=== PATIENT | female | born 2005 | race Two or more races ===

== ENCOUNTER 2025-06-11 12:14 | Outpatient (CLI) | payer BC, SELFPAY | END 2025-06-11 12:15 | disposition home or self-care (01) | LOC: AMB 06-14 13:17 | PROVIDERS: Visit Provider Emergency Medicine | DX: S29.9XXA Unspecified injury of thorax, initial encounter (principal); M62.81 Muscle weakness (generalized); W50.0XXA Accidental hit or strike by another person, initial encounter; Y93.66 Activity, soccer; Y92.328 Other athletic field as the place of occurrence of the external cause | CPT/HCPCS: A0425; A0427 ==

== ENCOUNTER 2025-06-11 12:45 | Emergency (ER) | payer BC, SELFPAY ==
--- OUTSIDE RECORDS SUMMARY | 2025-05-30 09:00 | XMS_ITS | Encounter Summary ---
Author Organization [facility] Address [address] [place] [address] Care Team Providers Care Lpn Name Role Phone Alphonso Guevara MD Primary Care Provider [phone] Reason for Visit * Reason Comments Imm/Inj Pt states that she's having some urinary incontinence - recommended to reach out to her PCP. No other concerns today. Encounter Details Date Type Department Care Team (Late st Contact Info) Description 05/30/2025 9:00 AM CDT Nurse Only [facility] [place] [address] [place] [address] Need for HPV vaccine (Primary Dx) Social History Tobacco Use Types Packs/Day Years Used Date Smoking Tobacco: Never Passive Smoke Exposure: Current Smokeless Tobacco: Never Tobacco Cessation:Counseling Given: Not Answered PHQ-2 Answer Date Recorded Initial depression screening score: 0 05/30/2025 Inadequate Housing Answer Date Recorded Social Determinants: Housing (Overall Score Help er) 0 10/20/2021 Interpersonal Safety Answer Date Record ed How often does anyone, inclu ding family and friends, physically hurt you? Never 08/20/2024 How often does anyone, inclu ding family and friends, insult or talk down to you? Never 08/20/2024 How often does anyone, inclu ding family and friends, threaten you with harm? Never 08/20/2024 How often does anyone, jesus manueltao ding family and friends, scream or curse at you? Never 08/20/2024 Sexually Active Control Partners Comments Yes Injection Comments No Sex and Gender Information Value Date Recorded Sex Assigned at Not on file Legal Sex Female 11:31 AM CDT Gender Identity Not on file Sexual Orientation Not on file documented as of this encounter Last Filed Vital Signs Vital Sign Reading Time Taken Comments Blood Pressure 114/80 05/30/2025 9:02 AM CDT Pulse - - Temperature - - Respiratory Rate - - Oxygen Saturation - - Inhaled Oxygen Concentration - - Weight 68 kg (150 lb) 05/30/2025 9:02 AM CDT Height 170.2 cm (5' 7) 05/30/2025 9:02 AM CDT Body Mass Index 23.49 05/30/2025 9:02 AM CDT documented in this encounter Progress Notes * Karma Ch CMA - 05/30/2025 9:35 AM CDT Injection/Vaccine Supervising Provider: Heaven Conteh Reviewed allergies and possible side effects prior to injection. The patient was given Gardasil HPVand was held following the injection for 10 minutes. No signs or symptoms of allergic reaction we observed. Patient tolerated procedure well. Educated patient to call office with any questions or concerns. documented in this encounter Plan of Treatment Upcoming Encounters Date Type Department Care Team (Late st Contact Info) Description 06/16/2025 8:30 AM CDT Nurse Only [facility] [place] [address] [place] [phone] 09/12/2025 11:15 AM PAPER HANDLER Office Visit [facility], [place] [address] [phone] [place] [address] [place] [address] documented as of this encounter Visit Diagnoses Diagnosis Need for HPV vaccine- Primary Need for prophylactic vaccination and inoculation against other viral diseases documented in this encounter Historical Medications * This list may reflect changes made after this encounter. atomoxetine (STRATTERA) 40 MG capsule Take 40 mg by mouth daily. 05/10/2025 added in this encounter Orders Immunization/Injection Count Last Ordered Date First Ordered Date HPV 9 (GARDASIL 9) 1 05/30/2025 documented in this encounter Care Teams Lpn Relationship Specialty Start [place] [address] [place] [id number] PCP - General Family Practice 03/24/24 documented as of this encounter
--- OUTSIDE RECORDS SUMMARY | 2025-05-30 10:30 | XMS_ITS | Encounter Summary ---
Author Organization [facility] Address [address] [place] [address] Care Team Providers Care Mathematics Teacher Name Role Phone Alphonso Guevara MD Primary Care Provider [phone] Reason for Visit * Reason Comments Physical Encounter Details Date Type Department Care Team (Latest Contact Info) Description 05/30/2025 10:30 AM CDT Office Visit [facility] [phone] [address] Corrie Wang PA-C [address] [place] [address] Annual physical exam (Primary Dx); Routine sports physical exam; Screening for sickle-cell disease or trait; Urinary urgency; Need for vaccination; Family history of cardiovascular disease Social History Tobacco Use Types Packs/Day Years Used Date Smoking Tobacco: Never Passive Smoke Exposure: Current Smokeless Tobacco: Never Tobacco Cessation:Counseling Given: Not Answered PHQ-2 Answer Date Recorded Initial depression screening score: 0 05/30/2025 Inadequate Housing Answer Date Recorded Social Determinants: Housing (Overall Score Help er) 0 10/20/2021 Interpersonal Safety Answer Date Record ed How often does anyone, jesus manuelu ding family and friends, physically hurt you? Never 08/20/2024 How often does anyone, inclu ding family and friends, insult or talk down to you? Never 08/20/2024 How often does anyone, inclu ding family and friends, threaten you with harm? Never 08/20/2024 How often does anyone, inclu ding family and friends, scream or curse [...] Sign Reading Time Taken Comments Blood Pressure 122/80 05/30/2025 10:33 AM CDT Pulse 75 05/30/2025 10:33 AM CDT Temperature 36.9 C (98.4 F) 05/30/2025 10:33 AM CDT Respiratory Rate 18 05/30/2025 10:33 AM CDT Oxygen Saturation 96% 05/30/2025 10:33 AM CDT Inhaled Oxygen Concentration - - Weight 71.2 kg (157 lb) 05/30/2025 10:33 AM CDT Height 170.2 cm (5' 7) 05/30/2025 10:33 AM CDT Body Mass Index 24.59 05/30/2025 10:33 AM CDT documented in this encounter Progress Notes * Corrie Wang PA-C - 05/30/2025 10:44 AM CDT Chief complaint: Chief Complaint Patient presents with Physical Vitals: Visit Vitals BP 122/80 Pulse 75 Temp 98.4 ??F (36.9 ??C) Resp 18 Ht 5' 7 (1.702 m) Wt 71.2 kg (157 lb) LMP 04/12/2025 (Approximate) SpO2 96% BMI 24.59 kg/m?? HISTORY OF PRESENT ILLNESS Elizabeth Raymond is a pleasant 19 year old female presents to the clinic for annual physical and sports physical. Sophomore at [employer]. Her first game is 05/31/25. She transferred from [facility]. 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 Patient's last menstrual period was 04/12/2025 (approximate). Started Depo in April 2025. Sexually active with male partner. Established with psych. Currently on Strattera for ADHD and mirtazapine- appetite, insomnia, and anxiety. -She is tolerating this regimen well. Denies MEREDITH, palpitations. BP is normotensive. 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 No alcohol. No recreational drug use. Sports preparticipation HPI Diagnosis of asthma? No Wakes during night coughing? No defects? No Developmental delay? No Blood disorders? Hemophilia, sickle cell, other? No Diabetes? No Head injury/concussion/passed out? No head injury or concussion. She had syncope about 3 years ago,no issues since. Seizures? No Heart problem/shortness of breath? No Heart murmur/high blood pressure? No Dizziness or chest pain with exercise?No Eyes/vision problems? No Ears/hearing problems?No Bone/joint problems/injury/scoliosis? No Loss of function of one of paired organs? (eye/ear/kidney/testicle) No Hospitalizations? No Surgery? No Serious injury or illness? No TB skin test positive? No TB disease? No Tobacco use? No Alcohol/drug use? No Family history of sudden before age 50? No Had you ever taken anabolic steroids are used any other performance supplement? No Do you wear a seatbelt, use a helmet, and use condoms? Yes Other significant problems: There are no active problems to display for this patient. PAST MEDICAL, FAMILY AND SOCIAL HISTORY Medications: Current Outpatient Medications Medication Sig Dispense Refill atomoxetine (STRATTERA) 40 MG capsule Take 40 mg by mouth daily. mirtazapine (REMERON) 15 MG tablet Take 15 mg by mouth at bedtime. atomoxetine (STRATTERA) 80 MG capsule Take 80 mg by mouth daily. (Patient not taking: Reported on 05/30/2025) No current facility-administered medications for this visit. Allergies: Allergies[1] Past Medical History/Surgeries: History - past medical[2] History - past surgical[3] Family History: History - family [4] Social History: Social History Tobacco Use Smoking status: Never Passive exposure: Current Smokeless tobacco: Never Substance Use Topics Alcohol use: Not on file REVIEW OF SYSTEMS Review of Systems Constitutional: Negative for fever. Respiratory: Negative for shortness of breath. Cardiovascular: Negative for chest pain. Neurological: Negative for dizziness and headaches. PHYSICAL EXAM Physical Exam Vitals and nursing note reviewed. Constitutional: General: She is not in acute distress. Appearance: Normal appearance. She is not ill-appearing, toxic-appearing or diaphoretic. HENT: Head: Normocephalic and atraumatic. Right Ear: Tympanic membrane, ear canal and external ear normal. Left Ear: Tympanic membrane, ear canal and external ear normal. Mouth/Throat: Mouth: Mucous membranes are moist. Pharynx: No oropharyngeal exudate or posterior oropharyngeal erythema. Neck: Neck supple. Eyes: Conjunctiva/sclera: Conjunctivae normal. Pupils: Pupils are equal, round, and reactive to light. Cardiovascular: Rate and Rhythm: Normal rate and regular rhythm. Heart sounds: Normal heart sounds. Pulmonary: Effort: Pulmonary effort is normal. No respiratory distress. Breath sounds: Normal breath sounds. Abdominal: General: Abdomen is flat. Bowel sounds are normal. There is no distension. Palpations: Abdomen is soft. There is no mass. Tenderness: There is no abdominal tenderness. Musculoskeletal: Right lower leg: No edema. Left lower leg: No edema. Lymphadenopathy: Cervical: No cervical adenopathy. Skin: General: Skin is warm and dry. Findings: No rash. Neurological: Mental Status: She is alert and oriented to person, place, and time. Psychiatric: Mood and Affect: Mood normal. Behavior: Behavior normal. Judgment: Judgment normal. EKG Normal sinus rhythm Normal EKG ASSESSMENT/PLAN Elizabeth was seen today for physical. Diagnoses and all orders for this visit: Annual physical exam Routine sports physical exam - Electrocardiogram 12-Lead Screening for sickle-cell disease or trait - Sickling Screen With Reflex; Future Urinary urgency - POCT Urine Dip Auto Need for vaccination - MENINGOCOCCAL B (BEXSERO) Family history of cardiovascular disease - Electrocardiogram 12-Lead Ok for unlimited sports participation. Sickle cell screening results are pending. [1] ALLERGIES: No Known Allergies [2] Past Medical History: Diagnosis Date ADHD Chlamydia infection 03/21/2025 Tx with Doxy 100 BID x7 [3] No past surgical history on file. [4] Family History Problem Relation Name Age of Onset Heart disease Maternal Grandmother Heart disease Paternal Grandmother Heart disease Paternal Grandfather documented in this encounter Plan of Treatment Upcoming Encounters Date Type Department Care Team (Late st Contact Info) Description 06/16/2025 8:30 AM CDT Nurse Only [facility] [place] [address] [place] [address] 09/12/2025 11:15 AM LABORATORY CHEMIST Office Visit [facility], [place] [address] [place] [address] [place] [address] [place] [address] [place], [place] [id number] documented as of this encounter Procedures Procedure Name Priority Date/Time Associated Diagnosis Comments POCT URINE DIP AUTO Routine 05/30/2025 1 1:29 AM CDT Urinary urgency ELECTROCARDIOGRAM 12-LEAD Today 05/30/2025 11:25 AM CDT Routine sports physical exam Family history of cardiovascular disease documented in this encounter Results * Sickling Screen With Reflex (05/30/2025 11:46 AM CDT) Sickling Screen Negative Negative 05/30/2025 1:24 PM CDT [facility] Blood VENOUS BLOOD SPECIMEN / Unknown Venipuncture / Unknown 05/30/2025 11:46 AM CDT 05/30/2025 11:46 AM CDT Corrie Oden PA-C BKR LAB BLOOD ORDERABLES F inal Result [facility] [address] [place] [id number] * POCT Urine Dip Auto (05/30/2025 11:29 AM CDT) POCT Color Yellow [place], [place], [place], [place], Red, Straw, Yellow, Green, Blue, Colorless, Other POCT Appearance Clear Clear, Cloudy, Hazy, Turbid POCT Glucose Urine Negative Negative mg/dL POCT Bilirubin Negative Negative POCT Ketones Negative Negative mg/dL POCT Specific [place] 1.025 1.000, 1.005, 1.010, 1.015, 1.020, 1.025, 1.030, <= 1.005 POCT Occult Blood Negative Negative POCT pH 7.0 5.0, 5.5, 6.0, 6.5, 7.0, 7.5, 8.0, 8.5 POCT Protein Negative Negative mg/dL POCT Urobilinogen 0.2 0.2, 1.0 mg/dL Urine Nitrite Negative Negative WBC (Leukocyte) Esterase POC Negative Negative TEST LOT NUMBER [id number] TEST LOT EXPIRATION DATE Urine 05/30/2025 11:2 9 AM CDT Corrie Oden PA-C POINT OF CARE TEST ORDERAB LES Final Result * Electrocardiogram 12-Lead (05/30/2025 11:25 AM CDT) 05/30/2025 11:2 5 AM CDT Impressions Corrie Wang PA-C - 05/30/2025 12:17 PM CDT Normal sinus rhythm Normal EKG I agree with machine generated EKG interpretation. -Corrie Oden PA-C Narrative Corrie Wang PA-C - 05/30/2025 12:17 PM CDT NSR Corrie Oden PA-C ECG ORDERABLES Final Resu lt documented in this encounter Visit Diagnoses Diagnosis Annual physical exam- Primary Routine general medical examination at a health care facility Routine sports physical exam Other general medical examination for administrative purposes Screening for sickle-cell disease or trait Urinary urgency Urgency of urination Need for vaccination Need for prophylactic vaccination and inoculation against unspecified single disease Family history of cardiovascular disease Family history of other cardiovascular diseases documented in this encounter Orders Immunization/Injection Count Last Ordered Date First Ordered Date MENINGOCOCCAL B (BEXSERO) 1 05/30/2025 documented in this encounter Care Teams Mathematics Teacher Relationship Specialty Start [place] [address] [place] [address] PCP - General Family Practice 03/24/24 documented as of this encounter
--- OUTSIDE RECORDS SUMMARY | 2025-05-30 12:30 | XMS_ITS | Encounter Summary ---
Author Organization [facility] Address [address] [place] [address] Care Team Providers Care Shadowgraph Operator Name Role Phone Alphonso Guevara MD Primary Care Provider [phone] Encounter Details Date Type Department Care Team (Late st Contact Info) Description 05/30/2025 12:30 PM CDT Lab Services [facility] [address] [place], [place] [id number] Screening for sickle-cell disease or trait Social History Tobacco Use Types Packs/Day Years Used Date Smoking Tobacco: Never Passive Smoke Exposure: Current Smokeless Tobacco: Never PHQ-2 Answer Date Recorded Initial depression screening score: 0 05/30/2025 Inadequate Housing Answer Date Recorded Social Determinants: Housing (Overall Score Help er) 0 10/20/2021 Interpersonal Safety Answer Date Record ed How often does anyone, jesus manueltao jared family and friends, physically hurt you? Never 08/20/2024 How often does anyone, isaias coleman family and friends, insult or talk down to you? Never 08/20/2024 How often does anyone, isaias coleman family and friends, threaten you with harm? Never 08/20/2024 How often does anyone, jesus manueltao coleman family and friends, scream or curse at you? Never 08/20/2024 Sexually Active Control Partners Comments Yes Injection Comments No Sex and Gender Information Value Date Recorded Sex Assigned at Not on file Legal Sex Female 11:31 AM CDT Gender Identity Not on file Sexual Orientation Not on file documented as of this encounter Plan of Treatment Upcoming Encounters Date Type Department Care Team (Late st Contact Info) Description 06/16/2025 8:30 AM CDT Nurse Only [facility] [place] [address] [place] [address] 09/12/2025 11:15 AM AUDIO VISUAL COLLECTIONS COORDINATOR Office Visit [facility], [place] [address] [place] [address] [place] [phone] [place] [address] [place], [place] [phone] documented as of this encounter Procedures Procedure Name Priority Date/Time Associated Diagnosis Comments SICKLING SCREEN WITH REFLEX Routine 05/30/2025 11:46 AM CDT Screening for sickle-cell disease or trait documented in this encounter Results * Sickling Screen With Reflex (05/30/2025 11:46 AM CDT) Sickling Screen Negative Negative 05/30/2025 1:24 PM CDT [facility] Blood VENOUS BLOOD SPECIMEN / Unknown Venipuncture / Unknown 05/30/2025 11:46 AM CDT 05/30/2025 11:46 AM CDT us Corrie Oden PA-C BKR LAB BLOOD ORDERABLES F inal Result [facility] [address] [place] [address] documented in this encounter Visit Diagnoses Diagnosis Screening for sickle-cell disease or trait documented in this encounter Care Teams Shadowgraph Operator Relationship Specialty Start [place] [address] [place] [address] PCP - General Family Practice 03/24/24 documented as of this encounter
[2025-06-11] VITALS (27 sets, daily range): BP systolic 130; BP diastolic 97; PULSE 62–90; RESP 16; TEMP 37.1; O2SAT 92–100; BMI 24.6
--- NOTE | 2025-06-11 13:20 | ED_ITS ---
HPI - Back Pain/Injury General Time Seen by Provider: 13:20 Date Seen: 06/11/25 Chief Complaint: Back Injury/Pain Stated Complaint: Back pain Time Seen by Provider: 06/11/25 13:12 Source: patient, EMS and RN notes reviewed Mode of arrival: EMS Limitations: no limitations History of Present Illness HPI Narrative: This 19-year-old female is brought in by EMS from a soccer game with a back injury. She is from [place], is here playing soccer. She was going for a ball and got any in the back area, she states it is more in the upper lumbar to lower thoracic area. There was enough force that this caused her to fall. She was later sitting there and was checked out by the life trainer, they thought her right leg was weak. When she started try to walk, felt some numbness in the left leg. Numbness is gone now. They called the ambulance and there has been no attempt to ambulate after that. She feels best sitting up. Notes no difficulty breathing, no pain with breathing, no chest pain with this, no abdominal pain. She did not lose consciousness, nothing else was injured when she fell forward. She states it is just her back that hurts. MD elicited complaint: back pain Related Data Allergies Allergy/AdvReac Type Severity Reaction Status Date / Time No Known Drug Allergies Allergy Verified 06/11/25 12:53 Review of Systems Status of ROS: Reports: 6 or more systems reviewed and unremarkable except as noted in History and below [facility] PFS Social History Smoking Status: Never smoker How often do you have a drink containing alcohol: never AUDIT-C Alcohol total score: 0 Non-prescribed substance use: denies use Exam Const: Vital Signs, click to edit/add: Vital Signs - 24 hr 06/11/25 12:54 06/11/25 13:00 06/11/25 13:00 Temperature 98.8 F Pulse Rate 84 79 Pulse Rate [Pulse Oximeter] 90 Respiratory Rate 16 Blood Pressure [Ri ght Upper Arm] 130/97 H Pulse Oximetry 94 95 96 Oxygen Delivery Me thod Room Air 06/11/25 13:15 06/11/25 13:30 06/11/25 13:45 Temperature Pulse Rate 76 79 82 Pulse Rate [Pulse Oximeter] Respiratory Rate Blood Pressure [Ri ght Upper Arm] Pulse Oximetry 99 100 97 Oxygen Delivery Me thod 06/11/25 14:00 06/11/25 14:15 06/11/25 14:30 Temperature Pulse Rate 81 72 78 Pulse Rate [Pulse Oximeter] Respiratory Rate Blood Pressure [Ri ght Upper Arm] Pulse Oximetry 97 99 98 Oxygen Delivery [place] th[place] 06/11/25 15:06 06/11/25 15:15 06/11/25 15:30 Temperature Pulse Rate 68 73 81 Pulse Rate [Pulse Oximeter] Respiratory Rate Blood Pressure [Ri ght Upper Arm] Pulse Oximetry 99 96 92 [facility] 06/[facility]/25 15:45 06/11/25 16:00 06/11/25 16:15 Temperature Pulse Rate 79 73 81 Pulse Rate [Pulse Oximeter] Respiratory Rate Blood Pressure [Ri ght Upper Arm] Pulse Oximetry 98 98 97 [facility] 06/11/25 16:30 06/11/25 16:45 06/11/25 17:00 Temperature Pulse Rate 67 76 77 Pulse Rate [Pulse Oximeter] Respiratory Rate Blood Pressure [Ri ght Upper Arm] Pulse Oximetry 97 98 97 [facility] 06/11/25 17:15 06/11/25 17:30 06/11/25 17:45 Temperature Pulse Rate 66 68 62 Pulse Rate [Pulse Oximeter] Respiratory Rate Blood Pressure [Ri ght Upper Arm] Pulse Oximetry 97 98 100 [facility] 06/11/25 18:00 06/11/25 18:15 06/11/25 18:30 Temperature Pulse Rate 83 74 70 Pulse Rate [Pulse Oximeter] Respiratory Rate Blood Pressure [Ri ght Upper Arm] Pulse Oximetry 96 96 98 [facility] 06/11/25 18:45 06/11/25 19:00 06/11/25 19:15 Temperature Pulse Rate 72 75 63 Pulse Rate [Pulse Oximeter] Respiratory Rate Blood Pressure [Ri ght Upper Arm] Pulse Oximetry 98 98 98 [facility] 06/11/25 19:30 Temperature Pulse Rate 76 Pulse Rate [Pulse Oximeter] Respiratory Rate Blood Pressure [Ri ght Upper Arm] Pulse Oximetry 96 Oxygen Delivery Me od This 19-year-old female is sitting straight up in bed, pillow under her knees. She is alert, interactive, no apparent distress. I am able to recline the bed back while she states sitting up. She is complaining of midline tenderness along her mid back along the lower thoracic and upper lumbar area. Visibly, cannot see any skin changes, no ecchymosis, no swelling. Lungs are clear, good air entry, no wheezing or crackles, no tachypnea, no accessory muscle use. CV regular rate and rhythm, no murmur, normal S1-S2, S3-S4. Neck full range of motion, no tenderness or pain. She has normal light touch sensation of her lower extremities. Her strength is 5/5 and symmetric around the ankles and toes, did not do much with her her hips or knees at this time as she states moving them causes pain in her back. She has a bruise over the right hip area which reportedly is older. No new injuries noted over the knees or lower extremities. Documenting provider has reviewed patient's vital signs: yes Course Course ED Course: This 19-year-old female is complaining of back pain, is more in the lower thoracic to upper lumbar where she states the injury was. This seems higher in the cord than what would just give her some leg symptoms. Did review with them that we can do CT imaging to rule out fracture. There still could be underlying cord pathology that we would not CN CT imaging and may require MR imaging. We have reviewed that we do not have MR imaging available at this time in the ER. She is having return of her pain, will order some more fentanyl as she did tolerate this with EMS. Her legs seem to be stable at this time but have not ambulated her. Reevaluation(s) Time of Reevaluation #1: 14:27 Reevaluation #1: Nursing staff reports patient's pain is returning, have ordered another 25 mcg fentanyl. Still awaiting CT imaging to be done. Time of Reevaluation #2: 15:32 Reevaluation #2: Patient is lying flat now. She has found this more comfortable than the extreme upright position she was in earlier. She notes a while ago she was moving her left leg and then got sharp pain in the left knee. Her knee was not injured but she felt sudden severe sharp pain. We have reviewed that her CT imaging of her thoracic and lumbar spine are negative for acute fracture. They do understand that this does not completely rule out spinal injuries, there can be cord injuries, ligamentous issues that we cannot see on CT imaging. She is feeling better at this time, no numbness tingling in her legs, no pain into her legs. We are going to see if she can ambulate at all. If she has increase in her back or any neurologic changes, we will stop. They understand that she may need MRI imaging to clear her back which I may not be able to do at all here. I will see if an oncoming nurse technician might be trained but current staff is unable to do this testing. Time of Reevaluation #3: 16:13 Reevaluation #3: Patient had difficulty getting up due to back pain and lying back down but when she was up she had no pain ambulating, back was not bothering her. Any position gives her significant back pain. She is noting no neurologic changes of her lower extremities. Did review with him that we have no capacity for MRI here tonight, none of the technicians coming on our trained, none that are here are trained. Mom really is worried about her back, is wanting MRI done. It does seem she is having pain out of proportion to examination. There certainly could be ligamentous injury or other traumatic injury not involving fracture of the spine. We will look to see if we can find ED to ED transfer where she may have an MRI done. Additional Reevaluation(s): 6:10 p.m.: Awaiting transfer for this patient, EMS has logistical issues in we need to wait until about 7:00 p.m.. Patient put on her call light, states she barely moved her back in had a severe pain in front of her right knee. We will give her more pain medicine, have her lie flat in minimize movement. Lying still she is feeling better. We just need to get her to [facility] where she can have MR imaging of her spine. Have reviewed with her that she did not injure this knee, did not go down on the knee. There is no palpable tenderness of the knee. Moving her back has cause pain in this knee now. Her mom wonders about a pinched nerve. I did discuss with them that I just think we need to proceed with the plan and get the MRI of her thoracolumbar spine to rule out any ligamentous or spinal canal issue. Consultations Consultation #1: Spoke with Dr. Knight from [facility]. She agrees to take this patient in transfer for MR imaging of her spine. Mom and patient are updated, will plan on sending via ambulance. They understand there may be a delay in transfer as there are other more critical patients had of them in transfer, hopefully we will not have significant volume of 911 calls delaying as well. They will let us know if she is having more pain. Time: 16:14 Vital Signs Vital signs: Initial Vital Signs Pulse Rate 84 06/11/25 12:54 Pulse Oximetry 94 06/11/25 12:54 Vital Signs Pulse Rate 84 06/11/25 12:54 Pulse Oximetry 94 06/11/25 12:54 Temperature 98.8 F 06/11/25 13:00 Pulse Rate 76 06/11/25 19:30 Respiratory Rate 16 06/11/25 13:00 Blood Pressure 130/97 H 06/11/25 13:00 Pulse Oximetry 96 06/11/25 19:30 Oxygen Delivery Method Room Air 06/11/25 13:00 Medications Administered Medications: Discontinued Medications Generic Name Dose Route Start Last Admin Trade Name Freq PRN Reason Stop Dose Admin Fentanyl 25 mcg 06/11/25 13:29 06/11/25 13:50 Fentanyl 100 Mcg/2 Ml Inj IVP 06/11/25 13:30 25 mcg ONCE ONE Administration Fentanyl 25 mcg 06/11/25 14:27 06/11/25 15:05 Fentanyl 100 Mcg/2 Ml Inj IVP 06/11/25 14:28 25 mcg ONCE ONE Administration Fentanyl 25 mcg 06/11/25 18:10 06/11/25 18:22 Fentanyl 100 Mcg/2 Ml Inj IVP 06/11/25 18:11 25 mcg ONCE ONE Administration MDM - Back Pain/Injury Imaging Data CT thoracic spine: Attestation: I have reviewed the pertinent imaging results. Radiologist's impression: Patient: [facility] Facility:?[facility] Patient ID:?[id number] Site Patient ID:?[id number]. Site :?2005 Study:?CT-Spine Thoracic W/O-06/11/2025 2:54:22 PM Ordering Physician:[place] Final Report: INDICATION: Mid back pain TECHNIQUE: Non-contrast axial CT of the thoracic spine with coronal and sagittal reconstructions. No comparisons. FINDINGS: The overall stature and alignment of the thoracic spine is within normal limits. No evidence of bony fragments narrowing the central canal or visualized neural foramina. IMPRESSION: 1. No convincing radiographic evidence of acute osseous injury. Please note that all CT scans at this facility use dose modulation, iterative reconstruction, and/or weight-based dosing when appropriate to reduce radiation dose to as low as reasonably achievable. Dictated by Manuel Burns MD @ 06/11/2025 2:58:11 PM (Electronic Signature) CT lumbar spine: Attestation: I have reviewed the pertinent imaging results. Radiologist's impression: Patient: DARON OCONNOR Facility:?[facility] Patient ID:?[id number] Site Patient ID:?[id number]. Site :?2005 Study:?CT-Spine Lumbar W/O-06/11/2025 2:54:36 PM Ordering Physician:[place] Final Report: INDICATION: Low back pain. TECHNIQUE: Non-contrast axial CT of the lumbar spine with coronal and sagittal reconstructions. No comparisons. FINDINGS: The overall stature and alignment of the lumbar spine is within normal limits. No evidence of bony fragments narrowing the central canal or visualized neural foramina. IMPRESSION: 1. No radiographic evidence of acute osseous injury Please note that all CT scans at this facility use dose modulation, iterative reconstruction, and/or weight-based dosing when appropriate to reduce radiation dose to as low as reasonably achievable. Dictated by Manuel Burns MD @ 06/11/2025 2:58:59 PM (Electronic Signature) Discharge Plan Discharge Clinical Impression: Back pain of thoracolumbar region Patient Disposition: [facility] Discharge Location: [facility]
--- NOTE | 2025-06-11 13:28 | CRLHL7_ITS ---
For Patients: As a result of the Century Cures Act, medical imaging exams and procedure reports are released immediately into your electronic medical record. You may view this report before your referring provider. If you have questions, please contact your health care provider. INDICATION: Low back pain. TECHNIQUE: Non-contrast axial CT of the lumbar spine with coronal and sagittal reconstructions. No comparisons. FINDINGS: The overall stature and alignment of the lumbar spine is within normal limits. No evidence of bony fragments narrowing the central canal or visualized neural foramina. IMPRESSION: 1. No radiographic evidence of acute osseous injury Please note that all CT scans at this facility use dose modulation, iterative reconstruction, and/or weight-based dosing when appropriate to reduce radiation dose to as low as reasonably achievable. Dictated by Manuel Burns MD @ 06/11/2025 2:58:59 PM (Electronically Signed)
--- NOTE | 2025-06-11 13:28 | CRLHL7_ITS ---
For Patients: As a result of the Century Cures Act, medical imaging exams and procedure reports are released immediately into your electronic medical record. You may view this report before your referring provider. If you have questions, please contact your health care provider. INDICATION: Mid back pain TECHNIQUE: Non-contrast axial CT of the thoracic spine with coronal and sagittal reconstructions. No comparisons. FINDINGS: The overall stature and alignment of the thoracic spine is within normal limits. No evidence of bony fragments narrowing the central canal or visualized neural foramina. IMPRESSION: 1. No convincing radiographic evidence of acute osseous injury. Please note that all CT scans at this facility use dose modulation, iterative reconstruction, and/or weight-based dosing when appropriate to reduce radiation dose to as low as reasonably achievable. Dictated by Manuel Burns MD @ 06/11/2025 2:58:11 PM (Electronically Signed)
--- OUTSIDE RECORDS SUMMARY | 2025-06-11 13:58 | XMS_ITS | Encounter Summary ---
Author Organization [facility] Address [address] [place] [address] Care Team Providers Care Importer Or Exporter Name Role Phone Alphonso Guevara MD Primary Care Provider [phone] Encounter Details Date Type Department Care Team (Late st Contact Info) Description 05/29/2025 E-Advice [facility], [facility] [phone] [facility] [address] [place] [address] [place] [address] [place] [address] Sports Paperwork Social History Tobacco Use Types Packs/Day Years [...] scream or curse at you? Never 08/20/2024 Comments No Sex and Gender Information Value Date Recorded Sex Assigned at Not on file Legal Sex Female 11:31 AM CDT Gender Identity Not on file Sexual Orientation Not on file documented as of this encounter Miscellaneous Notes * Telephone Encounter - Jessica Arango RN - 05/30/2025 9:22 AM CDT Patient scheduled for today for sports physical with ALEXANDRE FRY documented in this encounter Plan of Treatment Upcoming Encounters Date Type Department Care Team (Late st Contact Info) Description 06/16/2025 8:30 AM CDT Nurse Only [facility] [place] [address] [place] [phone] 09/12/2025 11:15 AM CONTAINER WASHER MACHINE Office Visit [facility], [facility] [phone] [facility] [address] [place] [phone] [place] [address] [place] [address] documented as of this encounter Visit Diagnoses Not on filedocumented in this encounter Care Teams Importer Or Exporter Relationship Specialty Start [place] [address] [place] [address] PCP - General Family Practice 03/24/24 documented as of this encounter
--- OUTSIDE RECORDS SUMMARY | 2025-06-11 13:58 | XMS_ITS | Encounter Summary ---
Author Organization [facility] Address [address] [place] [address] Care Team Providers Care Deliver Driver Name Role Phone Alphonso Guevara MD Primary Care Provider [phone] Encounter Details Date Type Department Care Team (Late st Contact Info) Description 05/30/2025 Results Follow-Up [facility], [facility] [phone] [facility] [address] [place] [address] Corrie Wang PA-C [address] [place] [address] Social History Tobacco Use Types Packs/Day Years [...] Encounter - Jessica Arango RN - 05/30/2025 4:19 PM CDT ----- Message from Helen Feliciano RN sent at 05/30/2025 1:29 PM CDT ----- ----- Message ----- From: Corrie Wang PA-C Sent: 05/30/2025 1:26 PM CDT To: [facility] Nurse Msg Pool Sickling screen is negative ----- Message ----- From: Lab, Background User Sent: 05/30/2025 1:24 PM CDT To: Fred Armendariz Result Pool documented in this encounter Plan of Treatment Upcoming Encounters Date Type Department Care Team (Late st Contact Info) Description 06/16/2025 8:30 AM CDT Nurse Only [facility] [place] [address] [place] [address] [place] [phone] 09/12/2025 11:15 AM NAIL STICKER Office Visit [facility], [facility] [phone] [phone] [place] [address] [place] [address] Pending Results Name Type Priority Associated Diagnoses Date /Time SICKLE CELL SCREEN Lab Routine 2024 4:21 PM CDT documented as of this encounter Visit Diagnoses Not on filedocumented in this encounter Care Teams Deliver Driver Relationship Specialty Start [place] [address] [place] [address] PCP - General Family Practice 03/24/24 documented as of this encounter
--- OUTSIDE RECORDS SUMMARY | 2025-06-11 13:58 | XMS_ITS | Clinical Summary ---
Author Organization [facility] Address [address] [place] [address] Care Team Providers Care Inspector And Unloader Name Role Phone Unavailable Primary Care Provider Unavailabl e Source Comments PLEASE NOTE, if this patient is a minor, it may be UNLAWFUL to discuss sensitive information that is contained in these records (such as FAMILY PLANNING, MENTAL HEALTH or SUBSTANCE ABUSE) with the minor patient's parent or other person without the patient's specific authorization.[facility] Medications No known medications Active Problems No known active problems Social History Tobacco Use Types Packs/Day Years Used Date Smoking Tobacco: Never Assessed Tobacco Cessation:Counseling Given: Not Answered Social Connections Answer Date Recorded Connectedness 0 06/25/2024 Financial Resource Strain Answer Date R ecorded Financial Resource Strain 0 2022 Stress Answer Date Recorded Stress 0 10/19/2022 Physical Activity Answer Date Recorded Physical Activity 0 10/19/2022 Food Insecurity Answer Date Recorded Food 0 07/07/2024 Transportation Needs Answer Date Record ed Transportation 0 10/19/2022 Housing Stability Answer Date Recorded Housing 0 10/19/2022 Safety and Environment Answer Date Jordan rded Safety 0 10/19/2022 Utilities Answer Date Recorded Utilities 0 10/19/2022 Employment Answer Date Recorded Stress 0 06/25/2024 Comments No Sex and Gender Information Value Date Recorded Sex Assigned at Not on file Legal Sex Female 5:44 PM PDT Gender Identity Female 12/24/2022 8:49 PM PDT Sexual Orientation Straight 01/12/2024 9: 03 AM PDT Last Filed Vital Signs Vital Sign Reading Time Taken Comments Blood Pressure 117/77 07/09/2023 1:15 PM CDT Pulse 81 07/09/2023 1:15 PM CDT Temperature - - Respiratory Rate - - Oxygen Saturation - - Inhaled Oxygen Concentration - - Weight - - Height - - Body Mass Index - - Plan of Treatment Health Maintenance Due Date Last Done Comments Anxiety Screening 2005 Dental FMX/Pano 2005 Dental Perio Charting 2005 Hepatitis C Screening 2005 STI Counseling 2005 Tobacco Screening 2005 Chlamydia Screening 2018 Gonorrhea Screening 2018 HIV Screening 2020 Imm-HPV (1 - 3-dose series) 2020 Relationship Safety Screening/Counseling 2020 Dental Examination 07/03/2023 12/29/2022 Dental BW 01/01/2024 12/29/2022 Dental Prophy 01/09/2024 07/09/2023, 12/29/2022 [id number] ( season) 2024 Alcohol and Drug Screen 10/12/2024 Depression Annual Screen 10/12/2024 Imm-Influenza (#1) 2025 08/11/2016, 1 , 06/24/2010 Hypertension Screening (#1) 07/08/2026 Imm-DTaP/Tdap/Td (7 - Td or Tdap) 08/11/2026 08/11/2016, 06/24/2010, 02/08/2007, Additional history exists Imm-Hepatitis B Completed 02/08/2007, 03/13, 2005 Imm-Hepatitis A Completed 05/10/2007, 10/27/2006 Imm-MMR Completed 06/24/2010, 10/27/2006 Imm-Varicella Completed 06/24/2010, 02/08/2007 Procedures Procedure Name Priority Date/Time Associated Diagnosis Comments PROPHYLAXIS - ADULT Routine 07/09/2023 1 :00 PM CDT Prophylactic measure BITEWINGS - FOUR RADIOGRAPHIC IMAGES Routine 12/29/2022 10:00 AM CDT Caries of enamel (incipient) PERIODIC ORAL EVALUATION ESTABLISHED PATIENT Routine 12/29/2022 10:00 AM CDT Caries of enamel (incipient) from Last 3 Months or Most Recently Relevant to Health Maintenance Insurance [employer] Member Subscriber Plan / Payer (Ef fective 2023-Present) Name:Elizabeth Raymond Relation to Subscriber:Self Name:Elizabeth Raymond Payer ID:[id number] Group ID:Not on file Type:Medicaid Address: [place] [id number]
--- OUTSIDE RECORDS SUMMARY | 2025-06-11 13:58 | XMS_ITS | Clinical Summary ---
Author Organization [facility] Address [address] [place] [address] Care Team Providers Care Magnetic Tape Typewriter Operator Name Role Phone Alphonso Guevara MD Primary Care Provider [phone] Allergies No known active allergies Medications mirtazapine (REMERON) 15 MG tablet Take 15 mg by mouth at bedtime. 03/06/2024 Active atomoxetine (STRATTERA) 80 MG capsule Take 80 mg by mouth daily. 01/31/2024 Active atomoxetine (STRATTERA) 40 MG capsule Take 40 mg by mouth daily. 05/10/2025 Active Active Problems No known active problems Encounters Date Type Department Care Team Description 05/30/2025 12:30 PM CDT Lab Services ACL Lab - [facility], [place] [address] [place] [address] Screening for sickle-cell disease or trait 05/30/2025 10:30 AM CDT Office Visit [facility], [place] [address] [place] [address] [place] [phone] Corrie Wang PA-C Annual physical exam (Primary Dx); Routine sports physical exam; Screening for sickle-cell disease or trait; Urinary urgency; Need for vaccination; Family history of cardiovascular disease 05/30/2025 9:00 AM CDT Nurse Only [facility] [place] [address] [place] [phone] Need for HPV vaccine (Primary Dx) 05/30/2025 Med Info Forms Outside Facility 05/30/2025 Results Follow-Up [facility], [place] [address] [phone] Corrie Wang PA-C 05/29/2025 E-Advice [facility], [place] [address] [facility] [address] [place] [phone] Alphonso Guevara MD Sports Paperwork 04/28/2025 Results Follow-Up [facility] [place] [address] [address] [place] [phone] Heaven Conteh PA-C 04/25/2025 12:30 PM CDT Office Visit [facility] [place] [address] [place] [phone] Heaven Conteh PA-C History of chlamydia (Primary Dx); Screen for STD (sexually transmitted disease) 03/21/2025 Results Follow-Up [facility] [place] [address] [address] [place] [phone] Heaven Conteh PA-C 03/20/2025 2:30 PM CDT Office Visit [facility] [place] [address] [address] [address] [place] [phone] Heaven Conteh PA-C Well woman exam with routine gynecological exam (Primary Dx); Screen for STD (sexually transmitted disease); Encounter for initial prescription of injectable contraceptive; Depo-Provera contraceptive status; Need for HPV vaccine from Last 3 Months Immunizations Immunization Administration Dates Next Due DTaP 06/24/2010, 7,07/02/2006,04/02 DTaP/Hep B/IPV 2005 HIB (HbOC) 2005 HIB Hep B 02/08/2007,04/02/2006 HPV 9-Valent 05/30/2025,03/20/2025 Hep A, ped/adol, 2 dose 05/10/2007,10/27/2006 IPV 06/24/2010,10/27/2006,04/02/2006 Influenza, live, trivalent, intranasal 1,06/24/2010 Influenza, split virus, quadrivalent 08/11/2016 MMR 06/24/2010,10/27/2006 Meningococcal B, OMV 05/30/2025 Meningococcal Conjugate MCV4 P (Menactra) 06/09/2018 Pneumococcal Conjugate 7 Valent 10/27/19 07,07/02/2006,04/02/2006,12/02 Tdap 08/11/2016 Varicella 06/24/2010,02/08/2007 Medical History Medical History Date Comments Adhd Chlamydia infection 03/21/2025 Tx with Doxy 100 BID x7 Family History Medical History Relation Comments Heart disease Maternal Grandmother Heart disease Paternal Grandfather Heart disease Paternal Grandmother Relation Status Comments Maternal Grandmother Paternal Grandfather Paternal Grandmother Social History Tobacco Use Types Packs/Day Years Used Date Smoking Tobacco: Never Passive Smoke Exposure: Current Smokeless Tobacco: Never Tobacco Cessation:Counseling Given: Not Answered PHQ-2 Answer Date Recorded Initial depression screening score: 0 05/30/2025 Inadequate Housing Answer Date Recorded Social Determinants: Housing (Overall Score Help er) 0 10/20/2021 Interpersonal Safety Answer Date Record ed How often does anyone, isaias coleman family and friends, physically hurt you? Never 08/20/2024 How often does anyone, isaias coleman family and friends, insult or talk down to you? Never 08/20/2024 How often does anyone, isaias coleman family and friends, threaten you with harm? Never 08/20/2024 How often does anyone, isaias coleman family and friends, scream or curse at you? Never 08/20/2024 Sexually Active Control Partners Comments Yes Injection Comments No Sex and Gender Information Value Date Recorded Sex Assigned at Not on file Legal Sex Female 11:31 AM CDT Gender Identity Not on file Sexual Orientation Not on file Obstetrics History Para Term AB IAB SAB Ectopic Molar Multiple Living Live Births 0 0 0 0 0 0 0 0 0 0 0 0 Growth Chart Information Age Height Weight [id number] th Percentile BMI Percentile Head Circum Head Circum Percentile Date 19 years 170.2 cm (5' 7) 71.2 kg (157 lb) 76.55%* 2024 19 years 67.4 kg (148 lb 7.7 oz) 2024 19 years 170.2 cm (5' 7) 65.9 kg (145 lb 2.8 oz) 62.28%* 2024 18 years 167.6 cm (5' 6) 68.9 kg (152 lb) 78.55%* 2023 17 years 170.2 cm (5' 7) 64.4 kg (142 lb) 61.82%* 2022 16 years 170.2 cm (5' 7) 62.1 kg (136 lb 12.8 oz) 61.70%* 2021 9 years 30.4 kg (67 lb) 2014 * [facility] (Girls, 2-20 Years) Last Filed Vital Signs Vital Sign Reading [...] Mass Index 24.59 05/30/2025 10:33 AM CDT Plan of Treatment Upcoming Encounters Date Type Department Care Team (Late st Contact Info) Description 06/16/2025 8:30 AM CDT Nurse Only [facility] [place] [address] [place] [phone] 09/12/2025 11:15 AM READING ASSISTANT Office Visit [facility], [place] [address] [place] [address] [place] [phone] [place] [address] [place] [address] Health Maintenance Due Date Last Done Comments COVID-19 Vaccine ( - season) 2024 Influenza Vaccine (#1) 2025 6, 07/14/2011, 06/24/2010 HPV Vaccine (3 - 3-dose series) 09/19/2025 05/30/2025, 03/20/2025 Meningococcal Serogroup B Vaccine (2 of 2 - Bexsero SCDM 2-dose series) 11/30/2025 05/30/2025 Chlamydia and Gonorrhea Screening (if sexually active) 04/25/2026 04/25/2025, 03/20/2025 Depression Screening 05/30/2026 05/30/2025 Well Child Visit (ages 3 - 21) 05/30/2026 05/30/2025, 03/20/2025, 03/24/2024, Additional history exists DTaP/Tdap/Td Vaccine (7 - Td or Tdap) 08/11/2026 08/11/2016, 06/24/2010, 02/08/2007, Additional history exists Pneumococcal Vaccine 0-49 Aged Out 2006, 07/02/2006, 04/02/2006, Additional history exists No longer eligible based on patient's age to complete this topic Hepatitis B Vaccine Completed 02/08/2007, 04/02/2006, 2005 Hepatitis A Vaccine Completed 05/10/2007, 7 Varicella Vaccine Completed 06/24/2010, 02/08/2007 Meningococcal Vaccine Aged Out 06/09/2018 No vic christina eligible based on patient's age to complete this topic Procedures Procedure Name Priority Date/Time Associated Diagnosis Comments SICKLING SCREEN WITH REFLEX Routine 05/30/2025 11:46 AM CDT Screening for sickle-cell disease or trait POCT URINE DIP AUTO Routine 05/30/2025 1 1:29 AM CDT Urinary urgency ELECTROCARDIOGRAM 12-LEAD Today 05/30/2025 11:25 AM CDT Routine sports physical exam Family history of cardiovascular disease CHLAMYDIA/GONORRHEA BY NUCLEIC ACID AMPLIFICATION Routine 04/25/2025 12:58 PM CDT History of chlamydia Screen for STD (sexually transmitted disease) POCT URINE Routine 03/20/2025 3:09 PM CDT Encounter for initial prescription of injectable contraceptive Depo-Provera contraceptive status TRICHOMONAS VAGINALIS BY NUCLEIC ACID AMPLIFICATION Routine 03/20/2025 2:58 PM CDT Screen for STD (sexually transmitted disease) CHLAMYDIA/GONORRHEA BY NUCLEIC ACID AMPLIFICATION Routine 03/20/2025 2:58 PM CDT Screen for STD (sexually transmitted disease) CHLAMYDIA/GONORRHEA BY NUCLEIC ACID AMPLIFICATION Routine 03/20/2025 2:58 PM CDT Screen for STD (sexually transmitted disease) from Last 3 Months Results * Sickling Screen With Reflex (05/30/2025 11:46 AM CDT) Sickling Screen Negative Negative 05/30/2025 1:24 PM CDT [facility] Blood VENOUS BLOOD SPECIMEN / Unknown Venipuncture / Unknown 05/30/2025 11:46 AM CDT 05/30/2025 11:46 AM CDT us Corrie Oden PA-C BKR LAB BLOOD ORDERABLES F inal Result [facility] [address] [place] [address] * POCT Urine Dip Auto (05/30/2025 11:29 AM CDT) POCT Color Yellow [place], Brown, [place], [place], Red, Straw, Yellow, Green, Blue, Colorless, Other POCT Appearance Clear Clear, Cloudy, Hazy, Turbid POCT Glucose Urine Negative Negative mg/dL POCT Bilirubin Negative Negative POCT Ketones Negative Negative mg/dL POCT Specific [place] 1.025 1.000, 1.005, 1.010, 1.015, 1.020, 1.025, [...] Oden PA-C ECG ORDERABLES Final Resu lt * Chlamydia/Gonorrhea by Nucleic Acid Amplification (04/25/2025 12:58 PM CDT) Only the most recent of2 resultswithin the time period is included. Chlamydia trachomatis by Nucleic Acid Amplification Negative Negative [facility] 04/26/2025 10:12 AM CDT [facility] Neisseria gonorrhoeae by Nucleic Acid Amplification Negative Negative [facility] 04/26/2025 10:12 AM CDT [facility] Disclaimer The expected normal reference range is negative. Positive results are reported to the [facility] Department of Public Health. The Aptima Combo 2 Assay is not intended for the evaluation of suspected sexual abuse or for other medico-legal indications, nor has it been evaluated in adolescents less than 14 years of age. In these scenarios, and in clinical settings where the prevalence of infection is low, confirmatory testing on positive results is recommended. [facility] 04/26/2025 10:12 AM CDT [facility] Urine URINE SPECIMEN / Unknown 04/25/2025 12:58 PM CDT 04/25/2025 4:10 PM CDT Heaven EMERSONR LAB MOLEC DIAGN ORD Fin al Result Performing Organization Address [facility] Co de Phone Number [address] * POCT Urine (03/20/2025 3:09 PM CDT) URINE ,QUAL Negative Negative Internal Procedural Controls Acceptable Yes Yes TEST LOT NUMBER [id number] TEST LOT EXPIRATION DATE 831,301 Urine 03/20/2025 3:09 PM CDT Heaven Conteh PA-C POINT OF CARE TEST ORDERABL ES Final Result * Trichomonas vaginalis by Nucleic Acid Amplification (03/20/2025 2:58 PM CDT) Trichomonas vaginalis by Nucleic Acid Amplification Negative Negative [facility] 03/21/2025 11:21 AM CDT [facility] Swab VAGINAL AND CERVICAL CYTOLOGIC MATERIAL / Unknown 03/20/2025 2:58 PM CDT 03/20/2025 4:14 PM CDT Heaven EMERSONR LAB MOLEC DIAGN ORD Fin al Result Performing Organization Address [facility] Co de Phone Number [address] from Last 3 Months Insurance [employer] MED[place] Member Subscriber Plan / Payer (Ef fective 2025-Present) Name:Elizabeth Raymond Relation to Subscriber:Self Name:Elizabeth Raymond Payer ID:[id number] (NAIC) Group ID:Not on file Type:[id number] O Address: [address] [address] Care Teams Magnetic Tape Typewriter Operator Relationship Specialty Start [place] [address] [place] [phone] PCP - General Family Practice 03/24/24
--- OUTSIDE RECORDS SUMMARY | 2025-06-11 13:58 | XMS_ITS | Encounter Summary ---
Author Organization [facility] Address [address] [place] [address] Care Team Providers Care Services Account Manager Name Role Phone Alphonso Guevara MD Primary Care Provider [phone] Encounter Details Date Type Department Care Team (Late st Contact Info) Description 04/28/2025 Results Follow-Up [facility] [place] [address] [place] [address] Heaven Conteh PA-C [address] [address] [place] [address] Social History Tobacco Use Types Packs/Day Years Used Date Smoking Tobacco: Never Passive Smoke Exposure: Current Smokeless Tobacco: Never PHQ-2 Answer Date Recorded Initial depression screening score: 0 03/24/2024 Inadequate Housing Answer Date Recorded Social Determinants: [...] Description 06/16/2025 8:30 AM CDT Nurse Only [facility] [place] [address] [place] [phone] 09/12/2025 11:15 AM MARINE FIREMAN Office Visit [facility], [place] [address] [address] [facility] [address] [place] [phone] [place] [address] [address] [place], [place] [phone] documented as of this encounter Visit Diagnoses Not on filedocumented in this encounter Care Teams Services Account Manager Relationship Specialty Start [place] [address] [place] [phone] PCP - General Family Practice 03/24/24 documented as of this encounter
--- OUTSIDE RECORDS SUMMARY | 2025-06-11 13:58 | XMS_ITS | Encounter Summary ---
Author Organization [facility] Address [address] [place] [address] Care Team Providers Care Rewrite Editor Name Role Phone Alphonso Guevara MD Primary Care Provider [phone] Encounter Details Date Type Department Care Team (Late st Contact Info) Description 05/30/2025 Med Info Forms Outside Facility Social History Tobacco Use Types Packs/Day Years [...] Description 06/16/2025 8:30 AM CDT Nurse Only [facility] [place] [address] [address] [place] [phone] 09/12/2025 11:15 AM TURNING MACHINE OPERATOR Office Visit [facility] [address] [address] [facility] [address] [place] [phone] [place] [address] [address] [place] [phone] documented as of this encounter Visit Diagnoses Not on filedocumented in this encounter Care Teams Rewrite Editor Relationship Specialty Start [place] [address] [address] [place] [phone] PCP - General Family Practice 03/24/24 documented as of this encounter
--- OUTSIDE RECORDS SUMMARY | 2025-06-11 13:58 | XMS_ITS | Clinical Summary ---
Author Organization [facility] Address [address] [place] [address] Care Team Providers Care Bisque Cleaner Name Role Phone Ángel Pacheco MD Primary Care Provider Unavai lable Allergies No known active allergies Medications albuterol HFA 108 (90 Base) MCG/ACT inhaler Inhale 2 puffs 4 times daily as needed (wheezing). 1 Each 07/11/2021 Active Social History Tobacco Use Types Packs/Day Years Used Date Smoking Tobacco: Never Social Connections Answer Date Recorded How often do you feel lonely or isolated from those around you? Not on file 06/05/2024 Social Connections: Recent Result Not on file 06/05/2024 Personal Safety Answer Date Recorded Personal Safety: Recent Result Not on file 0 04/21/2024 Personal Safety Risk Score Not on file 04/21 Inadequate Housing Answer Date Recorded Do you have problems with any of the following? Not on file 05/29/2024 Inadequate Housing: Recent Result Not on file 05/29/2024 Homelessness Answer Date Recorded What is your living situation today? Not on file 05/29/2024 Homelessness: Resent Result Not on file 05/12 Internet Answer Date Recorded Which of the following devic es do you use or have access to regularly (at least once a month)? Not on file 05/29/2024 Which type of Internet conne ction do you have for personal use at home or in public places (not including work)? Not on file 05/29/2024 Comments Unknown Sex and Gender Information Value Date Recorded Sex Assigned at Not on file Legal Sex Female 7:53 PM FIRST BEATER Gender Identity Not on file Sexual Orientation Not on file Last Filed Vital Signs Vital Sign Reading Time Taken Comments Blood Pressure 121/83 07/11/2021 11:35 PM CDT Pulse 78 07/11/2021 11:35 PM CDT Temperature 36.8 C (98.2 F) 07/11/2021 11:35 PM CDT Respiratory Rate 16 07/11/2021 11:35 PM CDT Oxygen Saturation 95% 07/11/2021 11:35 PM CDT Inhaled Oxygen Concentration - - Weight 70.3 kg (155 lb) 07/11/2021 7:10 PM CDT Height 172.7 cm (5' 8) 07/11/2021 7:10 PM CDT Body Mass Index 23.57 07/11/2021 7:10 PM CDT Body Mass Index Percentile 80.34% 07/11/2021 7:1 0 PM CDT Growth Chart: CDC (Girls, 2- 20 Years) Plan of Treatment Health Maintenance Due Date Last Done Comments HIV Screening 2005 MMR Vaccines (1 of 1 - Standard series) 2006 Depression Screening 2017 Varicella Vaccines (1 of 2 - 13+ 2-dose series) 2018 HPV Immunization (1 - 3-dose series) 2020 Meningococcal B Vaccine (1 of 2 - Standard) 2021 COVID-19 Vaccine (1 - 2023- season) 2024 Hepatitis B Vaccines (1 of 3 - 19+ 3-dose series) 2024 Seasonal Flu Immunization (#1) 06/12/2025 08/11/2016 Routine Physical 03/24/2026 03/24/2024, 05/2019, 06/09/2018, Additional history exists DTaP/Tdap/Td Vaccines (2 - Td or Tdap) 08/11/2026 08/11/2016 Meningococcal Vaccine Aged Out 06/09/2018 No vic christina eligible based on patient's age to complete this topic HIB Vaccines Aged Out No longer eligi ble based on patient's age to complete this topic Hepatitis A Vaccines Aged Out No long er eligible based on patient's age to complete this topic RSV Immunization <20 Months Aged Out No longer eligible based on patient's age to complete this topic Rotavirus Vaccines Aged Out No longer eligible based on patient's age to complete this topic Insurance [facility] MEDICAID Care Teams Bisque Cleaner Relationship Specialty Start Date End Date Ángel Pacheco MD PCP - General Pediatrics 07/11/21
--- OUTSIDE RECORDS SUMMARY | 2025-06-11 13:59 | XMS_ITS | Encounter Summary ---
Author Organization [facility] Address [address] [place] [address] Care Team Providers Care Yard Brakeman Name Role Phone Ángel Pacheco MD Primary Care Provider [phone] Encounter Details Date Type Department Care Team (Late st Contact Info) Description 06/05/2008 Abstract [facility] [address] [place] [address] [facility] Historical, Provider [address] [place] [address] Social History Tobacco Use Types Packs/Day Years Used Date Smoking Tobacco: Never Assessed Comments Unknown Sex and Gender Information Value Date Recorded Sex Assigned at Not on file Legal Sex Female 3:58 AM CADDY PACKER Gender Identity Not on file Sexual Orientation Not on file documented as of this encounter Last Filed Vital Signs Vital Sign Reading Time Taken Comments Blood Pressure - - Pulse - - Temperature - - Respiratory Rate - - Oxygen Saturation - - Inhaled Oxygen Concentration - - Weight 14 kg (30 lb 13.8 oz) 06/05/2008 11:34 AM CDT Height - - Body Mass Index - - documented in this encounter Plan of Treatment Not on file documented as of this encounter Visit Diagnoses Not on filedocumented in this encounter Care Teams Yard Brakeman Relationship Specialty Start Date End Date Ángel Pacheco MD [address] [facility] [address] [phone] PCP - General 06/28/12 05/31/24 documented as of this encounter
--- OUTSIDE RECORDS SUMMARY | 2025-06-11 13:59 | XMS_ITS | Encounter Summary ---
Author Organization [facility] Address [address] [place] [address] Care Team Providers Care Solid Waste Collector Name Role Phone Alphonso Guevara MD Primary Care Provider [phone] Encounter Details Date Type Department Care Team (Late st Contact Info) Description 05/31/2024 External Lab [facility] Medical Information [address], [place] [phone] Provider, Outside Social History Tobacco Use Types Packs/Day Years [...] on file documented as of this encounter Mental Status * Question Answer Entry Date Author Orientation Oriented to person;O riented to place;Oriented to time 08/20/2024 3:00 AM PIPE OR STEAM FITTER FURNACE INSTALLER Micaela Wooten RN documented in this encounter Plan of Treatment Upcoming Encounters Date Type Department Care Team (Late st Contact Info) Description 06/16/2025 8:30 AM CDT Nurse Only [facility] [place] [address] [place] [phone] 09/12/2025 11:15 AM PIPE OR STEAM FITTER FURNACE INSTALLER Office Visit [facility], [place] [address] [address] [place] [address] [place] [address] [address] [place], [place] [phone] documented as of this encounter Procedures Procedure Name Priority Date/Time Associated Diagnosis Comments LAB Routine 05/31/2024 12:45 PM CDT documented in this encounter Results * Lab (05/31/2024 12:45 PM CDT) Lab Result See scan for additional information [employer] DELFINA SANTILLANE Comment:SICKLE CELL SCREEN 05/31/2024 12:4 5 PM CDT Narrative ELVIS ROSSI DELFINA ITALO - 05/31/2024 12:45 PM CDT External results verified in Extract by [id number] on 06/03/2025 at 02:04 PM. Over 365 days old us Outside Provider SCANS Final Result Geron FLO SANTILLANE [address] [place] [address] documented in this encounter Visit Diagnoses Not on filedocumented in this encounter Care Teams Solid Waste Collector Relationship Specialty Start [place] [address] [place], [place] [phone] PCP - General Family Practice 03/24/24 documented as of this encounter
--- OUTSIDE RECORDS SUMMARY | 2025-06-11 13:59 | XMS_ITS | Clinical Summary ---
Author Organization [facility] Address [address] [place] [address] Care Team Providers Care Central Supply Technician Supervisor Name Role Phone Unavailable Primary Care Provider Unavailabl e Allergies No known active allergies Medications pediatric MVI w/iron ([employer]) Chew chewable tabletIndication s:Mineral Deficiency Prevention,Vitam in Deficiency Prevention Chew 1 tablet by mouth daily. Active albuterol 90 mcg/puff inhalation aerosol Inhale 2 puffs into the lungs. 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 Vaccination refused by guardian 06/09/2018 Overview (06/09/2018): HPV Feeling of sadness 06/09/2018 Resolved Problems Problem Noted Date Diagnosed Date Resolved Date Recurrent tonsillitis 08/28/20142015 Upper airway resistance syndrome 08/28/2014 02/14/2019 Nasal obstruction 08/28/2014 08/11/2016 Recurrent acute otitis media of both ears 08/28/2014 03/03/2016 Immunizations Immunization Administration Dates Next Due Influenza, Quadrivalent with Preservative 2015 Meningococcal Conjugate MCV4P 06/09/2018 Tdap 08/11/2016 Social History Tobacco Use Types Packs/Day Years Used Date Smoking Tobacco: Never Smokeless Tobacco: Never Comments No Sex and Gender Information Value Date Recorded Sex Assigned at Not on file Legal Sex Female 3:58 AM BARMAN Gender Identity Not on file Sexual Orientation Not on file Last Filed Vital Signs Vital Sign Reading Time Taken Comments Blood Pressure 102/60 07/19/2019 2:02 PM CDT Pulse 92 12/26/2022 2:07 PM CDT Temperature 36.7 C (98 F) 12/26/2022 2:07 PM CDT Respiratory Rate 16 12/26/2022 2:07 PM CDT Oxygen Saturation 97% 07/28/2019 12:48 PM CDT Inhaled Oxygen Concentration - - Weight 69.5 kg (153 lb 3.5 oz) 12/26/2022 2:07 P M CDT Height 161.3 cm (5' 3.5) 07/19/2019 2:02 PM CDT Body Mass Index - - Plan of Treatment Health Maintenance Due Date Last Done Comments [place] Well Child Check-Up 2005 2 week Well Child Check-Up 2005 1 Month Well Child Check-Up 2005 2 Month Well Child Check-Up 2005 4 Month Well Child Check-Up 02/02/2006 6 Month Well Child Check-Up 04/04/2006 9 Month Well Child Check-Up 07/05/2006 12 Month Well Child Check-Up 2006 15 Month Well Child Check-Up 01/02/2007 18 Month Well Child Check-Up 04/04/2007 24 Month Well Child Check-Up 2007 30 Month Well Child Check-Up 04/04/2008 36 Month Well Child Check-Up 2008 4 Year Well Child Check-Up 2009 5 Year Well Child Check-Up 2010 6 Year Well Child Check-Up 2011 9 Year Well Child Check-Up 2014 14 Year Well Child Check-Up 2019 15 Year Well Child Check-Up 2020 16 Year Well Child Check-Up 2021 17 Year Well Child Check-Up 2022 18 Year Well Child Check-Up 2023 Hearing Screening age 18-21 10/04/202305/13, 06/09/2018, 06/09/2018, Additional history exists Well Child Check-Up ([facility]) 2023 COVID-19 Vaccine ( season) 2024 7 Year Well Child Check-Up Completed 05/18/2013 8 Year Well Child Check-Up Completed 07/18/2014 10 Year Well Child Check-Up Completed 08/11/2016 11 Year Well Child Check-Up Completed 08/11/2016 12 Year Well Child Check-Up Completed 06/09/2018 13 Year Well Child Check-Up Completed 07/19/2019 Pneumococcal Vaccine: Pediatrics (0 to 5 Years) and At-Risk Patients (6 to 64 Years) Aged Out No longer eligible based on patient's age to complete this topic Insurance MEDICAID ANTHEM MEDICAID ANTHEM
--- OUTSIDE RECORDS SUMMARY | 2025-06-11 13:59 | XMS_ITS | Encounter Summary ---
Author Organization [facility] Address [address] [place] [address] Care Team Providers Care Fashion Supervisor Name Role Phone Ángel Pacheco MD Primary Care Provider [phone] Reason for Visit * Reason Onset Date Comments Information And Referral 01/08/2023 Encounter Details Date Type Department Care Team (Late st Contact Info) Description 01/08/2023 Nurse Triage [facility] [address] [place] [address] Ángel Pacheco MD [address] [place], [place] [id number] Information And Referral Social History Tobacco Use Types Packs/Day Years Used Date Smoking Tobacco: Never Smokeless Tobacco: Never Comments No Sex and Gender Information Value Date Recorded Sex Assigned at Not on file 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 Mom will pick note up in clinic today 01/08/23. * Telephone Encounter - Ángel Pacheco MD - 01/08/2023 12:56 PM CDT Okay for note * Telephone Encounter - Kiara Connelly RN - 01/08/2023 11:45 AM CDT Mom called and is asking for a release letter for patient to return to gym and sports. Patient seenat Urgent Care one week ago, for sprained ankle, put in boot. instructed patient to wear boot for 1 week then ease out as tolerated. Patient is feeling better and would like to participate again in sports. Reason for Disposition Health or general information question, no triage required and triager able to answer question Additional Information Negative: Caller is not with the child and is reporting urgent symptoms Negative: Refusing to take medications, questions about Negative: Medication or pharmacy questions Negative: Caller requesting lab results and child stable Negative: Caller has questions about durable medical equipment ordered and triager unable to answer Negative: Requesting referral to a specialist Negative: Blood pressure concerns but NO symptoms or history of hypertension Negative: Requesting regular office appointment and child is well Negative: Lab result is normal and was part of Well Child assessment Protocols used: Information Only Call - No [id number] * Telephone Encounter - Kiara Connelly RN - 01/08/2023 11:08 AM CDT Regarding: CLEARANCE ----- Message from Anaid Oneill sent at 01/08/2023 10:11 AM CDT ----- Reason for call: Speak with RN: MOM STATES PT SPRAINED HER ANKLE A COUPLE WEEKS AGO IS NOW BETTER. THE SCHOOL IS LOOKING FOR A CLEARANCE LETTER FROM PCP TO GET THE OKAY TO PLAY SPORTS AGAIN. documented in this encounter Plan of Treatment Not on file documented as of this encounter Visit Diagnoses Not on filedocumented in this encounter Care Teams Fashion Supervisor Relationship Specialty Start Date End Date Ángel Pacheco MD [address] [place] [id number] PCP - General 06/28/12 05/31/24 documented as of this encounter
== END 2025-06-11 19:45 | disposition short-term general hospital (02) ==
PROVIDERS: Emergency Provider Family Medicine
DX: S29.012A Strain of muscle and tendon of back wall of thorax, initial encounter (principal); W19.XXXA Unspecified fall, initial encounter; Y93.66 Activity, soccer
CPT/HCPCS: 72128; 72131; 94761; 96374; 96376; 99284; J3010

== ENCOUNTER 2025-06-11 19:36 | Outpatient (CLI) | payer MEDICAID, SELFPAY | END 2025-06-11 19:37 | disposition home or self-care (01) | LOC: AMB 06-14 15:00 | PROVIDERS: Visit Provider Family Medicine | DX: S29.9XXA Unspecified injury of thorax, initial encounter (principal); W51.XXXA Accidental striking against or bumped into by another person, initial encounter; Y93.66 Activity, soccer; Y92.39 Other specified sports and athletic area as the place of occurrence of the external cause | CPT/HCPCS: A0425; A0427 ==